=== PATIENT | female | born 1940 | race Caucasian/White ===

== ENCOUNTER → 2023-08-26 09:54 | Outpatient (REF) | payer OTHER, SELFPAY | LOC: HWRAD 09:54 | PROVIDERS: ATTENDING PHYSICIAN Internal Medicine Cardiovascular Disease; FAMILY PHYSICIAN Physician Assistant Medical | DX: I35.8 Other nonrheumatic aortic valve disorders (principal); Q21.12 Patent foramen ovale; I34.0 Nonrheumatic mitral (valve) insufficiency; R91.1 Solitary pulmonary nodule | CPT/HCPCS: 71250 ==

== ENCOUNTER → 2023-10-01 08:13 | Outpatient (REF) | payer OTHER, SELFPAY | LOC: DHCBS HW 08:13 | PROVIDERS: ATTENDING PHYSICIAN Internal Medicine Cardiovascular Disease; FAMILY PHYSICIAN Physician Assistant Medical | DX: I48.91 Unspecified atrial fibrillation (principal) | CPT/HCPCS: 93306 ==

== ENCOUNTER 2024-01-19 05:54 | Day surgery (SDC) | payer OTHER, SELFPAY ==
[2024-01-12 10:42] VITALS: BMI 20.1
[2024-01-12 11:36] LABS: % Basophils 0.7 % (0-2); % Eosinophils 0.8 % (0-6); % Immature Granulocytes 0.1 % (0-0.5); % Lymphocytes 33.3 % (20.5-51.1); % Monocytes 8.6 % (1.7-9.3); % Neutrophils 56.5 % (42.2-75.2); Absolute Basophils 0.1 10^3/uL (0-0.2); Absolute Eosinophils 0.1 10^3/uL (0-0.7); Absolute Lymphocytes 2.5 10^3/uL (1.2-3.4); Absolute Monocytes 0.7 10^3/uL (0.1-0.6); Absolute Neutrophils 4.3 10^3/uL (1.4-6.5); Hematocrit 37.6 % (37.0-47.0); Hemoglobin 12.8 g/dL (12.0-16.0); Mean Corpuscular Hgb 32.2 pg (27.0-31.0); Mean Corpuscular Volume 94.5 fL (81.0-99.0); Mean Platelet Volume 11.1 fL (7.4-10.4); Nucleated Red Blood Cells % 0 %; Platelet Count 201 10^3/uL (130-400); Red Blood Cell Count 3.98 10^6/uL (4.20-5.40); Red Cell Dist. Width 12.7 % (11.5-14.5); White Blood Cell Count 7.6 10^3/uL (4.8-10.8)
[2024-01-12 11:40] LABS: INR 1.23; PT 15.3 Sec (11.4-14.6)
[2024-01-12 12:04] LABS: ALT (SGPT) 20 U/L (0-35); AST (SGOT) 33 U/L (14-36); Alkaline Phosphatase 63 U/L (38-126); Blood Urea Nitrogen 17 mg/dl (7-17); Calcium 9.4 mg/dl (8.4-10.2); Carbon Dioxide 27 mmol/L (22-30); Chloride 104 mmol/L (98-107); Estimated Creatinine Clearance 38 ml/min; Glucose 90 mg/dl (70-99); HDL Cholesterol 62 mg/dl; LDL Cholesterol, Calculated 67 mg/dl; Magnesium 2.1 mg/dl (1.6-2.3); Potassium 4.4 mmol/L (3.5-5.1); Sodium 138 mmol/L (135-145); Total Bilirubin 0.8 mg/dl (0.2-1.3); Total Cholesterol 145 mg/dl (50-199); Total Protein 6.7 g/dl (6.3-8.2); Triglyceride 82 mg/dl (10-149); Very Low Density Lipoprotein 16 mg/dl (0-30); eGFR 55.55
[2024-01-19] VITALS (15 sets, daily range): BP systolic 110–137; BP diastolic 60–84; BMI 20.1
[2024-01-19 08:50] LABS: ACT-LR - POC 256 Seconds (116-155)
[2024-01-19 09:06] LABS: ACT-LR - POC 255 Seconds (116-155)
--- NOTE | 2024-01-19 09:24 | ITS.CL.ABL ---
Addendum entered and electronically signed by Chace Tong MD 01/19/24 09:29:
Procedure codes: PVI, Afib after PVI, intracardiac echo, EPS with stim, 3D mapping
Original Note:
Sleeve Sewer - Ablation
Ablation
Procedure Report:
ELECTROPHYSIOLOGY ABLATION STUDY
�
DATE:: January 19, 2024��������������������� REFERRING: Madiha Felxi
�
INDICATION: Persistent supraventricular tachycardia in the form of atrial fibrillation. Prior pulmonary vein isolation in 2022 with a 28 mm cryoballoon with recurrent persistent atrial fibrillation
�
HISTORY: See H and P.� As above
�
ANTIARRHYTHMIC DRUG: Metoprolol
�
PRE-PROCEDURE MIKI: No atrial thrombus
�
PRESENTING RHYTHM: Atrial fibrillation
�
'TIME-OUT':� called and confirmed.
�
SEDATION/ANESTHESIA:� provided via the anesthesia department using general anesthesia (LMA).
�
INTRAVENOUS/ARTERIAL ACCESS:
Right femoral venous - 8Fr
Left femoral venous - 8 Fr, 6 Fr
Ultrasound guidance for bilateral femoral vein access was utilized by me to obtain access with demonstration of normal anatomy
CHADS-VASC Score:
�
HAS-Bled Score
�
PROCEDURE:�
1.� A decapolar CS catheter was placed within the CS for mapping and pacing.� This was also used as the reference catheter for the 3-D map.
�
2. The intracardiac ultrasound catheter was positioned in the RA to identify the FO for targeting of transseptal puncture, assist� in identification of the pulmonary vein ostia, monitoring pre and post ablation pulmonary vein flow velocities,
monitoring for 'bubble' formation during RF application as a sign of thermal injury,� and to monitor for pericardial effusion during mapping and ablation procedure.�� Left atrial size, LV ejection fraction, and pulmonary vein flows were monitored
pre and post ablation procedure. The other valves were inspected and found to be free of significant regurgitation or stenosis.
�
3.� Half of the calculated heparin bolus was administered prior to the first transeptal puncture.� Transseptal puncture was performed to diagnose RA and LA pressure so that safety of LA mapping and ablation could be further assessed, and to access
the left atrium and pulmonary veins for mapping and ablation.� This entailed advancing an 8 Fr SL-1 sheath with dilator into the superior vena cava and withdrawing both (monitoring intracardiac ultrasound, fluoroscopy and tip pressure) with the tip
oriented toward the atrial septum.� The fossa ovalis was engaged (indicated by sudden displacement of the sheath tip as well as tenting of the fossa seen on intracardiac ultrasound).� Left atrial access required a pass with the Brockenbrough needle
extended.� Left atrial catheter position was confirmed by pressure monitoring (RA mean pressure 8 mm Hg and LA mean presure 14 mm Hg), LA saturation (99%),� as well as fluoroscopy.� The sheath was advanced over the dilator and positioned in the left
atrium.� This procedure was repeated for the Agilis sheath.� The remainder of the calculated heparin bolus was administered and heparin was
infused to maintain ACT at 300 -350 seconds throughout the case.
�
4.� RA pacing was performed via the proximal decapolar poles and LA pacing was performed via the distal decapolr poles.
�
5. A quadrapolar catheter was first positioned at the His position for His Bundle recording which was tagged via the 3-D Navex sytem, and then passed to the RVA for RV pacing and recording.
�
6. The ablation catheter was positioned through one of the transeptal seaths and a 20 pole ring mapping catheter was positioned through the second seath into the LA and then the ostia of the LIPV, LSPV, RSPV and the RIPV.��
�
7.� Next, a 3-D map was created using Navex.�� A 3-D reconstructed CT image was compared to the 3-D Navex map to assist in anatomic interpretation, mapping and ablation.� The CT image and the NavX image were fused.
�
8. The pulmonary veins were isolated at baseline. We did perform lesions in the antrum of both the left and right pulmonary veins as well as the interatrial septum. 48 lesions total were given to the posterior wall and the anterior of each vein
demonstrating entrance and exit block in all 4 pulmonary veins and the posterior wall of the left atrium. After cardioversion and 200 J synchronized biphasic shock to sinus rhythm entrance next block was confirmed in all 4 pulmonary veins and
electrical silence with not capture in the posterior wall, floor, and roof of the left atrium. We also addressed the interatrial septum with additional lesions along the interatrial septum. The patient was noninducible for tachyarrhythmia post
cardioversion with AV Wenke block at 410 ms and block in the AH interval.
�
9. Normal sinus node and AV node function noted.
TOTAL FLOURO TIME: 10.4 minutes 84 mGy
�
TOTAL RF DURATION: 0 minutes
�
REVERSAL OF HEPARIN: 25 mg of protamine, slow IV administration with hybptu-vl-lgdmu stitch placed
�
COMPLICATIONS:�
None
Intracardiac US shows no pericardial effusion post ablation.
�
SUMMARY:��
Complex left atrial mapping and ablation.
Isolation of left atrial posterior wall with additional lesions delivered in the left and right pulmonary vein antra.
�
RECOMMENDATIONS:
1. Admit to monitored bed.�
2. Resume anticoagulation
3.� Out of bed in 4 hours
4.� Consider same-day discharge
�
Copy to: Dr. Diana Cleary
�
--- NOTE | 2024-01-19 13:19 | W.PN.UPDATE ---
Update Note
Progress Note Update
Pt seen post PVI. Bilat groin sites without ht/bleeding, non tender. Urinating without difficulty. Post EKG SR w/PACs, no acute changes. Resume eliquis today, continue other meds as before. Followup at [facility] arranged. Home later today if groin
sites/tele remain stable.
== END 2024-01-19 14:15 | disposition home or self-care (01) ==
LOC: CATH 05:54
PROVIDERS: ATTENDING PHYSICIAN Internal Medicine Cardiovascular Disease; FAMILY PHYSICIAN Physician Assistant Medical; OTHER PHYSICIAN Internal Medicine Cardiovascular Disease
DX: I48.19 Other persistent atrial fibrillation (principal); E78.5 Hyperlipidemia, unspecified; N18.30 Chronic kidney disease, stage 3 unspecified; I12.9 Hypertensive chronic kidney disease with stage 1 through stage 4 chronic kidney disease, or unspecified chronic kidney disease; M85.80 Other specified disorders of bone density and structure, unspecified site; Z86.79 Personal history of other diseases of the circulatory system; Q21.12 Patent foramen ovale; Z79.01 Long term (current) use of anticoagulants; Z79.899 Other long term (current) drug therapy; R91.1 Solitary pulmonary nodule; K21.9 Gastro-esophageal reflux disease without esophagitis; D17.71 Benign lipomatous neoplasm of kidney
CPT/HCPCS: C1732; C1894; C1730; C1733; C1769; C1892; C1766; C1759; 36415; 80053; 80061; 83735; 85025; 85347; 85610; 86850; 86900; 86901; 93005; 93656; 93657

== ENCOUNTER → 2024-06-10 08:08 | Outpatient (REF) | payer OTHER, SELFPAY | LOC: HWRAD 08:08 | PROVIDERS: ATTENDING PHYSICIAN Physician Assistant Medical | DX: Z13.820 Encounter for screening for osteoporosis (principal); Z78.0 Asymptomatic menopausal state; M85.89 Other specified disorders of bone density and structure, multiple sites | CPT/HCPCS: 77080 ==

== ENCOUNTER → 2024-09-08 07:56 | Outpatient (REF) | payer OTHER, SELFPAY | LOC: HWRAD 07:56 | PROVIDERS: ATTENDING PHYSICIAN Internal Medicine Critical Care Medicine; FAMILY PHYSICIAN Physician Assistant Medical | DX: R91.1 Solitary pulmonary nodule (principal) | CPT/HCPCS: 71250 ==

== ENCOUNTER 2024-09-27 08:17 | Inpatient (IN) | payer OTHER, SELFPAY ==
[2024-09-27] VITALS (10 sets, daily range): BP systolic 92–132; BP diastolic 59–93; BMI 20.7
--- NOTE | 2024-09-27 09:00 | W.PN.CARDCBS ---
Addendum entered and electronically signed by Can Johnson MD 09/27/24 09:55:
Attending addendum: Patient seen and examined. PA note reviewed and Dr. Cleary's note reviewed. Findings independently confirmed by me. Briefly, this is an 83-year-old female with a prior history of paroxysmal atrial fibrillation treated with
pulmonary vein isolation in January 2024 and subsequent recurring episodes of atrial fibrillation. A recent ecmo specialist was notable for 100% atrial fibrillation over the monitored duration and she is now admitted for Tikosyn loading. She
generally has been feeling well and is largely unaware of rhythm disturbances.
Physical Exam:
GEN: AAO x 3.��No acute distress
HEENT:��NC/AT, sclera are anicteric
LUNGS: Clear to bases bilaterally.��No wheezing or rhonchi
CV: Irreg Irreg rhythm with normal S1/S2.��No S3, No S4.��Murmur: None
ABD : Soft, Bowel sounds are present.
EXT: No CCE
NEURO: No focal neurologic deficits��
RECOMMENDATIONS:
-Tikosyn loading
-Planned cardioversion
-Will check ECG. Currently in rate controlled afib
--- Serial ECGs ordered and will be followed.
-Continue oral anticoagulation with apixaban.
Original Note:
Today's Communication / Plan
-
awaiting labs
initiate tikosyn
follow QTc
continue toprol, eliquis
Impression / Plan
-
Please refer to office note 09/01/24
Primary Tallow Maker: Dr. Cleary
Primary EP: Dr. Tong
Assessment:
Presentation for tikosyn loading
Persistent atrial fibrillation
s/p PVI 01/2024 with subsequent recurrence, 100% afib by OP monitor 08/2024
tikosyn loading 09/27/24
chronic OAC with eliquis
Possible PFO by prior echo
Aortic sclerosis/mod AR
Ascending thoracic aorta dilation
HLD
Pulmonary nodules
Osteopenia
ECHO 10/01/23: EF 50 to 55%, dilated atria, mild to moderate MR, moderate AR, mild TR, PAP 36 mmHg, dilated ascending aorta and aortic arch
Plan:
-Patient with atrial fibrillation underwent PVI 01/2024 with subsequent recurrence. [place] was 100% by outpatient monitor in 08/2024. Now presents for Tikosyn loading
-Awaiting blood work
-In rate controlled atrial fibrillation on my review of EKG 09/27. QTc 456ms
-Follow QTc on EKG with Tikosyn initiation
-No missed doses of Eliquis, continue
-continue OP toprol 25mg daily
-Discussed if remains in atrial fibrillation after 4th or 5th dose (pending timing), may require cardioversion prior to discharge
-Last echo from 10/01/2023 with results as above
Progress Note - Tallow Maker
Subjective
Date of Service: September 27, 2024
No current complaints
Objective
Labs:
pending
Vital Signs and I&O:
temp 97.5
pulse 90 bpm
resp 18
O2 sat 96%
BP: 119/74
Physical Exam
Physical Exam
GEN: No distress, awake, alert, oriented x3
HEENT: supple, anicteric, mmm, eomi
LUNGS: CTA B/L, no wheezes/rales
CV: Irreg, S1/S2, no murmur
ABD: soft, BS+, NT/ND
EXT: No cyanosis, clubbing, edema
NEURO: Gross non-focal
SKIN: Warm, pink, dry. No rash
[2024-09-27 09:28] LABS: % Basophils 0.8 % (0-2); % Eosinophils 1.4 % (0-6); % Immature Granulocytes 0.2 % (0-0.5); % Lymphocytes 40.5 % (20.5-51.1); % Neutrophils 47.1 % (42.2-75.2); Absolute Basophils 0.1 10^3/uL (0-0.2); Absolute Eosinophils 0.1 10^3/uL (0-0.7); Absolute Lymphocytes 2.6 10^3/uL (1.2-3.4); Absolute Monocytes 0.6 10^3/uL (0.1-0.6); Hematocrit 36.8 % (37.0-47.0); Hemoglobin 12.5 g/dL (12.0-16.0); Mean Corpuscular Hgb 31.3 pg (27.0-31.0); Mean Corpuscular Volume 92.2 fL (81.0-99.0); Mean Platelet Volume 10.3 fL (7.4-10.4); Nucleated Red Blood Cells % 0 %; Platelet Count 216 10^3/uL (130-400); Red Blood Cell Count 3.99 10^6/uL (4.20-5.40); Red Cell Dist. Width 12.2 % (11.5-14.5); White Blood Cell Count 6.4 10^3/uL (4.8-10.8)
[2024-09-27 09:53] LABS: ALT (SGPT) 24 U/L (0-35); AST (SGOT) 34 U/L (14-36); Alkaline Phosphatase 53 U/L (38-126); Blood Urea Nitrogen 21 mg/dl (7-17); Calcium 9.1 mg/dl (8.4-10.2); Carbon Dioxide 27 mmol/L (22-30); Chloride 106 mmol/L (98-107); Glucose 80 mg/dl (70-99); Magnesium 2.1 mg/dl (1.6-2.3); Potassium 4.5 mmol/L (3.5-5.1); Sodium 140 mmol/L (135-145); Total Bilirubin 0.7 mg/dl (0.2-1.3); Total Protein 6.7 g/dl (6.3-8.2); eGFR > 60.00
--- NOTE | 2024-09-27 11:38 | W.CARD.TIKOS ---
Initiate Tikosyn
-
I verify that the patient has not taken any verapamil (Isoptin/Calan), ketoconazole (Nizoral), cimetidine (Tagamet), trimethoprim (Trimpex), trimethoprim/sulfamethoxazole (Bactrim), megesterol (Megace), prochlorperazine (Compazine),
hydrochlorothiazide (HCTZ), dolutegravir (Tivicay) or any Class I or Class III anti-arrhythmic within the last three days
AND
I verify that the patient has not taken amiodarone within the last THREE months, or that the patient's amiodarone plasma concentration is <0.3 mcg/mL.
Creatinine 0.9 mg/dL (0.6-1.0) 09/27/24 09:19
Does patient have a Ventricular Conduction Abnormality: No
I have assessed the baseline QTc interval (using QT for heart rate less than 60 bpm) and deemed the patient is appropriate for Dofetilide therapy. I understand that Tikosyn is contraindicated if the QTc is >440msec (500msec in patients with
ventricular conduction abnormalities).
QTc interval is greater than 440msec without conduction abnormality OR greater than 500msec with a conduction abnormality, but acceptable to proceed per Cardiology attending.
Ordering Physician: Can Johnson
[2024-09-27] MEDS: TIKOSYN 250 MCG PO (12:27)
--- NOTE | 2024-09-27 17:00 | PTCARENOTE ---
Pt received this am as a direct admit for Tikosyn loading. Afib, rate in the 90's. Denies any pain or discomfort. Tolerated first dose of Tikosyn. No c/o offered.
[2024-09-27] MEDS: CRESTOR 5 MG PO (18:06)
[2024-09-27] MEDS: ELIQUIS 5 MG PO (19:36)
[2024-09-28] VITALS (14 sets, daily range): BP systolic 88–108; BP diastolic 58–80; BMI 20.7
[2024-09-28] MEDS: TIKOSYN 250 MCG PO (00:05)
[2024-09-28 03:07] LABS: Blood Urea Nitrogen 21 mg/dl (7-17); Calcium 9.2 mg/dl (8.4-10.2); Carbon Dioxide 27 mmol/L (22-30); Chloride 105 mmol/L (98-107); Estimated Creatinine Clearance 44 ml/min; Glucose 99 mg/dl (70-99); Potassium 4.2 mmol/L (3.5-5.1); Sodium 140 mmol/L (135-145); eGFR > 60.00
[2024-09-28] MEDS: FEOSOL 325 MG PO (09:10)
[2024-09-28] MEDS: PROTONIX 40 MG PO (09:11)
[2024-09-28] MEDS: ELIQUIS 5 MG PO ×2 (09:11→20:22)
[2024-09-28] MEDS: VITAMIN D3 (cholecalciferol) 25 MCG PO (09:11)
[2024-09-28] MEDS: TOPROL XL 25 MG PO (09:23)
[2024-09-28] MEDS: TIKOSYN 125 MCG PO ×2 (10:22→20:56)
--- NOTE | 2024-09-28 12:09 | W.PN.CARDCBS ---
Addendum entered and electronically signed by Jayme Jimenez MD 09/28/24 13:59:
I saw and examined the patient.
The [employer] Bi Architect's note was reviewed and I agree with the note.
Comment:
GEN: No distress, awake, Ox3
HEENT: supple, anicteric, mmm
LUNGS: CTA, no wheezes/rales
CV: Irreg, S1/S2, 1/6 syst LSB, no gallop
ABD: soft, BS+, NT/ND
EXT: No edema
NEURO: Gross non-focal
SKIN: No rash
Plan:
Will decrease Tikosyn to 125 mcg every 12. Continue to follow QT interval.
Discussed case with EP. Continue to follow on telemetry as she looks like she is having a rate dependent bundle branch block.
Plan cardioversion in a.m.
Decrease Toprol to 12.5 mg daily
Original Note:
Today's Communication / Plan
-
decrease tikosyn to 125mcg
follow QTC
decrease toprol
for CV in AM
Impression / Plan
-
Please refer to office note 09/01/24
Primary Manager Fraud: Dr. Cleary
Primary EP: Dr. Tong
Assessment:
Presentation for tikosyn loading
Persistent atrial fibrillation
s/p PVI 01/2024 with subsequent recurrence, 100% afib by OP monitor 08/2024
tikosyn loading 09/27/24
chronic OAC with eliquis
Possible PFO by prior echo
Aortic sclerosis/mod AR
Ascending thoracic aorta dilation
HLD
Pulmonary nodules
Osteopenia
ECHO 10/01/23: EF 50 to 55%, dilated atria, mild to moderate MR, moderate AR, mild TR, PAP 36 mmHg, dilated ascending aorta and aortic arch
Plan:
-Patient with atrial fibrillation underwent PVI 01/2024 with subsequent recurrence. [place] was 100% by outpatient monitor in 08/2024. Now presents for Tikosyn loading
-remains in rate controlled atrial fibrillation on review of tele overnight with intermittent bundle vs aberrancy
-QTc prolonged by EKG on 250mcg tikosyn and also with some QRS widening on my review of EKGs. discussed with EP. will decrease dose to 125mcg and follow QTc
-K/mag stable
-continue eliquis, no missed doses
-BPs on low side. will decrease toprol to 12.5mg daily with hold parameters in place
-will plan for CV in AM
-Last echo from 10/01/2023 with results as above, EF preserved
Progress Note - Manager Fraud
Subjective
Date of Service: September 28, 2024
Feeling well. No issues
Objective
Labs:
09/27/24 09:19
09/28/24 02:29
Labs
Hgb 12.5 g/dL (12.0-16.0) 09/27/24 09:19
Hct 36.8 % (37.0-47.0) L 09/27/24 09:19
Plt Count 216 10^3/uL (130-400) 09/27/24 09:19
APTT Cancelled 09/27/24 23:00
Sodium 140 mmol/L (135-145) 09/28/24 02:29
Potassium 4.2 mmol/L (3.5-5.1) 09/28/24 02:29
BUN 21 mg/dl (7-17) H 09/28/24 02:29
Creatinine 0.9 mg/dL (0.6-1.0) 09/28/24 02:29
Glucose 99 mg/dl (70-99) 09/28/24 02:29
Vital Signs and I&O:
Vital Signs
Temp Pulse Resp BP Pulse Ox
98.5 F 100 18 102/69 97
09/28/24 10:41 09/28/24 09:23 09/28/24 10:41 09/28/24 09:23 09/28/24 10:41
Vital Signs
Temp Pulse Resp BP Pulse Ox
98.5 F 100 18 102/69 97
09/28/24 10:41 09/28/24 09:23 09/28/24 10:41 09/28/24 09:23 09/28/24 10:41
Intake & Output
09/26/24 09/27/24 09/28/24 09/29/24
07:59 07:59 07:59 07:59
Intake Total 480 / 480
Balance 480 / 480
Physical Exam
Physical Exam
GEN: No distress, awake, alert, oriented x3
HEENT: supple, anicteric, mmm, eomi
LUNGS: CTA B/L, no wheezes/rales
CV: Irreg, S1/S2, no murmur
ABD: soft, BS+, NT/ND
EXT: No cyanosis, clubbing, edema
NEURO: Gross non-focal
SKIN: Warm, pink, dry. No rash
--- NOTE | 2024-09-28 16:32 | CM ---
spoke to pt in room, she is pre vindep, lives alone in a 2 story home with 2 step to enter. she denies any dc planning needs or dme's. plan is for dc to home w estuardo medically stable
[2024-09-28] MEDS: CRESTOR 5 MG PO (17:42)
--- NOTE | 2024-09-28 21:13 | PTCARENOTE ---
4th dose of Tikosen given at 21:00. EKG ordered for 2300. Confirmed dosing, previous QTc, and time of Tikosen with DR Smiley via tiger text. Pt updated on plan of care and NPO for potential cardioversion on 09/29. Pt resting with call borja in
reach and plan of care ongoing. See MAR and flowchart for full pt care and assessment.
[2024-09-29 03:32] VITALS: BP 109/80
[2024-09-29 03:33] VITALS: BP 109/80; BMI 19.9
[2024-09-29 04:37] LABS: Blood Urea Nitrogen 21 mg/dl (7-17); Calcium 9.3 mg/dl (8.4-10.2); Carbon Dioxide 26 mmol/L (22-30); Chloride 105 mmol/L (98-107); Estimated Creatinine Clearance 42 ml/min; Glucose 91 mg/dl (70-99); Potassium 4.3 mmol/L (3.5-5.1); Sodium 140 mmol/L (135-145); eGFR > 60.00
[2024-09-29 07:09] VITALS: BP 104/68
[2024-09-29] MEDS: ELIQUIS 5 MG PO (08:05)
[2024-09-29] MEDS: PROTONIX 40 MG PO (08:06)
[2024-09-29] MEDS: TOPROL XL 12.5 MG PO (08:06)
[2024-09-29] MEDS: FEOSOL 325 MG PO (08:06)
[2024-09-29] MEDS: TIKOSYN 125 MCG PO (08:06)
[2024-09-29] MEDS: VITAMIN D3 (cholecalciferol) 25 MCG PO (08:07)
[2024-09-29 10:14] VITALS: BP 108/61
--- NOTE | 2024-09-29 11:54 | PTCARENOTE ---
Pt went for CV, brief report given to Sony GILES.
--- NOTE | 2024-09-29 12:14 | ITS.CL.CARDI ---
Radiation Control Specialist - Cardioversion
Cardioversion
Procedure Report:
Date of Procedure: 09/29/24
Procedure: Cardioversion
Indication: Symptomatic atrial fibrillation
Performing Physician: Jayme Jimenez MD
Technique: The patient was brought to the holding area. Signed informed consent was obtained. A time out was called and performed. The patient was anesthetized by the anesthesia service. Anticoagulation status was reviewed and appropriate. R2 pads
were placed anteriorly and posteriorly. A 200 J synchronized biphasic shock restored normal sinus rhythm without significant bradycardia. There were no complications.
Conclusion: Uncomplicated cardioversion from atrial fibrillation to sinus rhythm.
Recommendation: Routine post cardioversion care. Continue fdc anticoagulation.
[2024-09-29 12:41] VITALS: BP 112/50
--- NOTE | 2024-09-29 12:44 | PTCARENOTE ---
Rec'd Pt s/p cardioversion, A,A+Ox3. SR on laboratory monitor. HR 60-70's. Pt also has occasional BBC- or aberrancy noted.
--- NOTE | 2024-09-29 14:12 | W.PN.CARDCBS ---
Addendum entered and electronically signed by Jayme Jimenez MD 09/29/24 16:48:
I saw and examined the patient.
The Credit Products Officer's note was reviewed and I agree with the note.
Comment:
GEN: No distress, awake, Ox3
HEENT: supple, anicteric, mmm
LUNGS: CTA, no wheezes/rales
CV: Reg, S1/S2, 1/6 syst LSB, no gallop
ABD: soft, BS+, NT/ND
EXT: No edema
NEURO: Gross non-focal
SKIN: No rash
Plan:
Doing well status post cardioversion and now in sinus rhythm. QTc 491 with narrow QRS I suspect she has a rate dependent bundle branch block.
Continue Tikosyn 120 mcg every 12 and Toprol 12.5 mg daily. Continue Eliquis 5mg po bid
OK for D/C
Original Note:
Today's Communication / Plan
-
s/p CV. in SR
continue tikosyn 125mcg Q12H, toprol 12.5mg daily, eliquis
ok for DC
OP cardiac follow up arranged
Impression / Plan
-
Please refer to office note 09/01/24
Primary Carpet Floor Layer Apprentice: Dr. Cleary
Primary EP: Dr. Tong
Assessment:
Presentation for tikosyn loading
Persistent atrial fibrillation
s/p PVI 01/2024 with subsequent recurrence, 100% afib by OP monitor 08/2024
tikosyn loading 09/27/24
chronic OAC with eliquis
Possible PFO by prior echo
Aortic sclerosis/mod AR
Ascending thoracic aorta dilation
HLD
Pulmonary nodules
Osteopenia
ECHO 10/01/23: EF 50 to 55%, dilated atria, mild to moderate MR, moderate AR, mild TR, PAP 36 mmHg, dilated ascending aorta and aortic arch
Plan:
-Patient with atrial fibrillation underwent PVI 01/2024 with subsequent recurrence. [place] was 100% by outpatient monitor in 08/2024. Presented for Tikosyn loading
-underwent successful CV 09/29/24
-remains in SR with intermittent LBBB vs aberrant conduction
-continue tikosyn 125mcg Q12H. QTc stable
-continue eliquis
-continue toprol at decreased dose of 12.5mg daily
-OP cardiac follow up arranged
-ok for DC to home
-d/w nursing
-total DC time 32 minutes
[id number]
Progress Note - Carpet Floor Layer Apprentice
Subjective
Date of Service: September 29, 2024
Feeling well. Status post successful cardioversion
Objective
Labs:
09/27/24 09:19
09/29/24 03:40
Labs
Hgb 12.5 g/dL (12.0-16.0) 09/27/24 09:19
Hct 36.8 % (37.0-47.0) L 09/27/24 09:19
Plt Count 216 10^3/uL (130-400) 09/27/24 09:19
APTT Cancelled 09/27/24 23:00
Sodium 140 mmol/L (135-145) 09/29/24 03:40
Potassium 4.3 mmol/L (3.5-5.1) 09/29/24 03:40
BUN 21 mg/dl (7-17) H 09/29/24 03:40
Creatinine 0.9 mg/dL (0.6-1.0) 09/29/24 03:40
Glucose 91 mg/dl (70-99) 09/29/24 03:40
Vital Signs and I&O:
Vital Signs
Temp Pulse Resp BP Pulse Ox
98.5 F 60 16 112/50 97
09/29/24 11:24 09/29/24 12:45 09/29/24 11:24 09/29/24 12:41 09/29/24 11:24
Vital Signs
Temp Pulse Resp BP Pulse Ox
98.5 F 60 16 112/50 97
09/29/24 11:24 09/29/24 12:45 09/29/24 11:24 09/29/24 12:41 09/29/24 11:24
Intake & Output
09/27/24 09/28/24 09/29/24 09/30/24
07:59 07:59 07:59 07:59
Intake Total 480 / 480 960 / 960
Balance 480 / 480 960 / 960
Physical Exam
Physical Exam
GEN: No distress, awake, alert, oriented x3
HEENT: supple, anicteric, mmm, eomi
LUNGS: CTA B/L, no wheezes/rales
CV: Reg, S1/S2, no murmur
ABD: soft, BS+, NT/ND
EXT: No cyanosis, clubbing, edema
NEURO: Gross non-focal
SKIN: Warm, pink, dry. No rash
--- NOTE | 2024-09-29 14:26 | W.DS.TRANS ---
DC Summary - Manager Alliance
-
Discharge Instructions:
Discharge Diagnosis/Procedures atrial fibrillation, tikosyn load, cardioversion
Diet Low Cholesterol
Activity As tolerated
Driving Restrictions No driving for 24 hours
Instructions:
Stand-Alone Forms:
Changes to Home Medications: Yes
Discharge Medications:
DC Medications w/original date entered in [facility]
apixaban 5 mg tablet (Eliquis) 5 mg PO BID 07/03/22
giftbzcg-lxr-gikth acid 0.4 mg-lycopene 300 mcg-lutein 250 mcg tablet (Centrum Silver) 1 tab PO DAILY 07/03/22
pantoprazole 40 mg tablet,delayed release (Protonix) 40 mg PO DAILY 07/03/22
Slo-Release Iron 45 mg PO DAILY 08/06/22
cholecalciferol (vitamin D3) 25 mcg (1,000 unit) tablet 25 mcg PO DAILY 08/13/22
rosuvastatin 5 mg tablet 5 mg PO QPM 08/13/22
dofetilide 125 mcg capsule 125 mcg PO Q12H #180 caps 09/29/24
metoprolol succinate 25 mg tablet,extended release 24 hr 12.5 mg (1/2 x 25 mg) PO DAILY #1 tab 09/29/24
Home Medication Changes
tikosyn is new
toprol dose decreased
Pending Results: No
[2024-09-29 14:29] VITALS: BP 106/65
--- NOTE | 2024-09-29 14:50 | PTCARENOTE ---
Pt given Dofetilide 6 doses from our pharmacy to take home with her. [facility] [place] [facility] 125 [facility]. Case management aware and several [facility] in the area were called to see if they currently [facility] [phone]
[facility] Dof[facility]ide 125 mcg. Brittney Ellis sent e-script to them. Pt aware and will picking supervisor med there.
== END 2024-09-29 15:45 | disposition home or self-care (01) | DRG 309 ==
LOC: IVU 08:17
PROVIDERS: Internal Medicine Cardiovascular Disease; Physician Assistant; ADMITTING PHYSICIAN Internal Medicine Cardiovascular Disease; FAMILY PHYSICIAN Nurse Practitioner Adult Health
PROC: 5A2204Z Restoration of Cardiac Rhythm, Single (ICD-10-PCS; 2024-09-29)
DX: I48.19 Other persistent atrial fibrillation (principal); Q21.12 Patent foramen ovale; Z79.01 Long term (current) use of anticoagulants; I70.0 Atherosclerosis of aorta; I77.810 Thoracic aortic ectasia; E78.5 Hyperlipidemia, unspecified; M85.80 Other specified disorders of bone density and structure, unspecified site; I44.7 Left bundle-branch block, unspecified
CPT/HCPCS: 80048; 80053; 83735; 85025; 92960; 93005